=== PATIENT | male | born 1950 | race Caucasian/White ===

== ENCOUNTER 2019-02-10 07:05 | Emergency (ER) | payer MEDICARE, BC ==
[2019-02-10 07:16] VITALS: BP 123/86
--- NOTE | 2019-02-10 07:16 | UC ---
Skin Complaint HPI - HPI Summary HPI Summary: Patient is 68 year old male , who present today to the urgent care with for rash past 3 days . He noticed it under left arm around to back, aches. He had a shingles vaccine 4 or 5 years ago. His is a nurse and noticed the vesicles. He denies any fevers or chills or any other symptoms. He took Tylenol for pain relief - History of Current Complaint Time Seen by Provider: 02/10/19 07:12 Stated Complaint: SKIN Hx Obtained From: Patient - Allergy/Home Medications Allergies/Adverse Reactions: Allergies Allergy/AdvReac Type Severity Reaction Status Date / Time codeine Allergy Nausea Verified 02/10/19 07:15 Home Medications: Home Medications Brimonidine Tartrate/Timolol [Combigan 0.2%-0.5% Eye Drops] 15 ml OP TID [History Confirmed 02/10/19] Triamcinolone Acetonide [Kenalog] 0.147 mg EX DAILY WITH MEAL 02/10/19 [History Confirmed 02/10/19] PMH/Surg Hx/FS Hx/Imm Hx - Additional Past Medical History Additional PMH: Past Medical History : GERD, hyperlipidemia, glaucoma Past Surgical History: Hernia surgery Family History : non contributory Social History : Occasional alcohol, non smoker, no drug use. Previously Healthy: Yes - Surgical History Surgical History: Yes Surgery Procedure, Year, and Place: hernia - Family History Known Family History: Positive: Other - father of multiple myeloma. mother living age 94, Non-Contributory - Social History Alcohol Use: Occasionally Substance Use Type: None Smoking Status (MU): Never Smoked Tobacco Review of Systems All Other Systems Reviewed And Are Negative: Yes Constitutional: Positive: Negative Skin: Positive: Rash - Vesicular Eyes: Positive: Negative ENT: Positive: Negative Respiratory: Positive: Negative Cardiovascular: Positive: Negative Gastrointestinal: Positive: Negative Genitourinary: Positive: Negative Motor: Positive: Negative Neurovascular: Positive: Negative Musculoskeletal: Positive: Negative Neurological: Positive: Negative Psychological: Positive: Negative Is Patient Immunocompromised?: No Physical Exam - Summary Physical Exam Summary: Vital Signs Reviewed: Yes A+Ox3, no distress Eyes: Conjunctiva Clear ENT: Hearing grossly normal neck: supple Respiratory: Positive: No respiratory distress, No accessory muscle use Cardiovascular: skin color reflect adequate perfusion Musculoskeletal Exam: HERRING x 4 without difficulty Neurological: Positive: Alert, ambulatory without difficulty Psychological: Positive: Normal Response To Family Skin: Areas of Vesicular eruption noted on the left anterior chest, in the axilla and in the scapular region on the left back. No lesions noted on the right side. There is associated erythema. No drainage or discharge is noted Triage Information Reviewed: Yes Vital Signs Reviewed: Yes Course/Dx - Course Course Of Treatment: During the visit today, we discussed the findings consistent with shingles and further plan. I will prescribe the medication to the pharmacy . Patient expressed understanding . - Diagnoses Provider Diagnosis: Shingles Discharge - Sign-Out/Discharge Documenting (check all that apply): Patient Departure All imaging exams completed and their final reports reviewed: No Studies - Discharge Plan Condition: Stable Disposition: HOME Prescriptions: Lidocaine 2% JELLY* 1 applic TOPICAL ONCE 7 Days #1 tube ValACYclovir (*) [Valtrex 1 GM(*)] 1 gm PO TID 7 Days #21 tab Patient Education Materials: Shingles (ED) Referrals: Tyler Lopez MD [Primary Care Provider] - 1 Week Additional Instructions: Please start taking the medication as prescribed to the pharmacy . Apply lidocaine for comfort if needed Follow up with your primary care doctor in 1 week Patients blood pressure slightly high in Urgent care today , plan follow up with PCP for better control Return to Urgent care / ER if symptoms get worse. - Billing Disposition and Condition Condition: STABLE Disposition: Home
== END 2019-02-10 07:45 | disposition home or self-care (01) ==
LOC: UCEAST 07:05
DX: B02.9 Zoster without complications (principal); K21.9 Gastro-esophageal reflux disease without esophagitis; E78.5 Hyperlipidemia, unspecified; Z88.5 Allergy status to narcotic agent
CPT/HCPCS: 99212; G0463